=== PATIENT | male | born 1970 | race Two or more races ===

== ENCOUNTER 2025-01-29 09:30 | Outpatient (RCR) | payer MEDICAID, SELFPAY ==
--- NOTE | 2025-01-07 10:39 | PT.OIERPT ---
PT OP Initial Eval Patient Information Outpatient Physical Therapy Treatment Date: 01/07/25 Visit Reasons: BILATERAL FOOT PAIN Medical Diagnosis: M19.072 M19.071 Treatment Dx #1: B ankle pain Start of Care: 01/07/25 Date of Onset: 09/03/24 Smoking Status Smoking Status: Never smoker Initial Assessment Subjective: Pt is 54 yr old american speaking male who had B ankle sx in August for arthritis but doesn't know what was done. He can ambulate with ankle pain R>L for about 20 mins and then they start to hurt. He is taking ibuprofen for this pain. 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 PMH: none reported Imaging: with provider Pt goal: to lessen the ankle pain Objective: B ankle AROM: Strength: DF: neutral B 4/5 PF: 45 deg B 4/5 Inversion: 15 deg Eversion: 10 deg TTP: moderate of R ATJ Heel raise: 50% height Gait: symmetrical, good step length Stairs: reciprocol pattern 6 , no ankle pain Assessment: Pt presents with decreased B ankle DF ROM and TTP of R anterior talocrural joint. Pt would benefit from skilled therapy to meet goals and has good rehab potential. Eval followed by HEP with printout. Short Term and [employer]ter Goals 1. Ind with HEP 2. Improved B ankle DF to at least 5 deg 3. Heel raise full height x10 without B ankle pain 4. Ambulate at least 45 mins without increased in B ankle pain Treatment Plan ?1. Manual therapy ? 2. Therex ? 3. Modalities as indicated, moist heat, ice, estim Frequency and Duration: 1-2x a week for 12 visits plus evaluation Certification Dates: 01/07/25 to 04/08/25 Procedure Charges OP PT Eval Mod Complex 30 minutes: Yes
--- NOTE | 2025-01-14 10:18 | PT.ODAYNRPT ---
PT Outpatient Daily Note OP Daily Note Outpatient Physical Therapy Treatment Date: 01/14/25 Visit Reasons: BILATERAL FOOT PAIN Subjective: Same as eval Objective: See F/S for therex Assessment: Good LE strength with squatting and lunging today Plan: Continue per POC Length of Time (minutes) of Treatment: 30 Minutes Procedure Charges Therapeutic Exercise 30 minutes: Yes
--- NOTE | 2025-01-29 18:28 | PT.ODS1RPT ---
PT OP Progress/Discharge Note Date of Service: 01/29/25 Progress Note/DC Note Progress Note/Discharge Note: DC Note Patient Information Visit Reasons: BILATERAL FOOT PAIN Service Continue Service or Discharge: Discharge Discharge Date: 01/29/25 Status Subjective: Pt is doing HEP with pain relief, wants to D/C Objective: B ankle DF: 5 deg Heel raise: full height Assessment: Pt has attended the eval and 2 Rx sessions with good progress with therapy goals. He is independent with HEP and has improved B ankle DF to 5 deg. Pt is ambualting for exercise and can heel raise full height without pain. Plan: D/C with HEP Procedure Charges Therapeutic Exercise 30 minutes: Yes
== END 2025-02-02 23:59 | disposition home or self-care (01) ==
LOC: CPTX 09:30
PROVIDERS: PCP Podiatrist Foot & Ankle Surgery; Referring Provider Podiatrist Foot & Ankle Surgery; Visit Provider Podiatrist Foot & Ankle Surgery
DX: M25.572 Pain in left ankle and joints of left foot (principal); M25.571 Pain in right ankle and joints of right foot; M19.072 Primary osteoarthritis, left ankle and foot; M19.071 Primary osteoarthritis, right ankle and foot
CPT/HCPCS: 97110; 97162

== ENCOUNTER 2025-03-12 11:55 | Day surgery (SDC) | payer MEDICAID, SELFPAY ==
[2025-03-11 15:01] VITALS: BMI 37.5
[2025-03-12] VITALS (11 sets, daily range): BP systolic 102–123; BP diastolic 67–84; PULSE 63–81; RESP 12–19; TEMP 36.1–36.2; O2SAT 94–99; BMI 36.2
[2025-03-12] MEDS: RINGERS LACTATED 1000 ML 1,000 ML 100 ML IV (14:09)
[2025-03-12] MEDS: fentaNYL CIT INJ 50 mCg/ML AMP 2ML (ASD USE ONLY) IV (14:15)
[2025-03-12] MEDS: MIDAZOLAM INJ 1 MG/ML VIAL 2 ML (ASD USE ONLY) 2 MG IV (14:15)
== END 2025-03-12 15:34 | disposition home or self-care (01) ==
PROVIDERS: Referring Provider Surgery; Visit Provider Surgery
PROC: 0DBE8ZX Excision of Large Intestine, Via Natural or Artificial Opening Endoscopic, Diagnostic (ICD-10-PCS; CPT 45380; principal; 2025-03-12 13:00)
DX: Z12.11 Encounter for screening for malignant neoplasm of colon (principal)
CPT/HCPCS: 45378; A4649; J2250; J3010; J7120